=== PATIENT | male | born 1975 | race African-American/Black ===

== ENCOUNTER 2020-09-27 18:24 | Emergency (ER) | payer OTHER ==
[~2020-09-27] VITALS: Ht 177.8 cm; Wt 77.1 kg
--- NOTE | 2020-09-27 18:45 | NUR ---
BIB 86 for medical clearance, willing to go to psych facility voluntarily. Denies pain. In room air and denies SOB. Respiration regular and unlabored. Will continue to monitor the patient.
[2020-09-27 19:46] LABS: BASOPHILS # (AUTO) 0.1 K/uL (0.0-0.2); BASOPHILS % (AUTO) 0.4 % (0.0-2.0); EOSINOPHILS % (AUTO) 3.7 % (0.0-6.0); HEMATOCRIT 33 % (39-51); HEMOGLOBIN 11.3 g/dL (13.5-17.5); LYMPHOCYTES # (AUTO) 2.3 K/uL (0.8-4.8); LYMPHOCYTES % (AUTO) 19.1 % (20.0-44.0); MEAN CORPUSCULAR HGB CONC 34 g/dl (31.0-36.0); MEAN CORPUSCULAR VOLUME 91 fL (80-96); MONOCYTES # (AUTO) 1.1 K/uL (0.1-1.30); MONOCYTES % (AUTO) 8.7 % (2.0-12.0); NEUTROPHILS # (AUTO) 8.3 K/uL (1.8-8.9); NEUTROPHILS % (AUTO) 68.1 % (43.0-81.0); PLATELET COUNT (AUTO) 293 K/uL (150-450); RED BLOOD CELL COUNT(AUTO) 3.67 MIL/uL (4.5-6.0); WHITE BLOOD COUNT (AUTO) 12.2 K/uL (4.3-11.0)
[2020-09-27 20:00] LABS: ALANINE AMINOTRANSFERASE 18 U/L (12-78); ALBUMIN 3.1 g/dL (3.4-5.0); ALCOHOL, BLOOD < 3 mg/dL (0-0); ALKALINE PHOSPHATASE 68 U/L (46-116); ASPARTATE AMINOTRANSFERASE 15 U/L (15-37); BILIRUBIN,DIRECT 0.1 mg/dL (0.0-0.2); BILIRUBIN,TOTAL 0.2 mg/dL (0.2-1.0); CARBON DIOXIDE 27 mmol/L (21-32); CHLORIDE 101 mmol/L (98-107); GLUCOSE 102 mg/dL (74-106); POTASSIUM 3.7 mmol/L (3.5-5.1); SODIUM SERUM 137 mmol/L (136-145); TOTAL PROTEIN, SERUM 7.9 g/dL (6.4-8.2); UREA NITROGEN, BLOOD 10 mg/dL (7-18)
[2020-09-27 20:05] LABS: ACETAMINOPHEN < 10 ug/ml (10-30)
[2020-09-27 20:49] LABS: BILIRUBIN,URINE SMALL (NEGATIVE); COLOR,URINE YELLOW (YELLOW); LEUKOCYTE ESTERASE ,URINE Negative (NEGATIVE); NITRITE, URINE Negative (NEGATIVE); PROTEIN,URINE Trace mg/dl (NEGATIVE); UGLUCOSE Negative (NEGATIVE)
[2020-09-27 21:01] LABS: BACTERIA,URINE Rare /HPF (None Seen); SQUAMOUS EPITHELIAL CELL,UR 0-2 /HPF (None Seen); WBC,URINE 0-2 /HPF (0-3)
--- NOTE | 2020-09-27 23:08 | NUR ---
CLINICAL AND FACESHEET FAXED TO [facility] INTAKE FOR VOLUNTARY PSYCH ADMISSION.
--- NOTE | 2020-09-28 07:46 | NUR ---
THE PATIENT ALERT. DENIES PAIN. IN ROOM AIR AND DENIES SOB. RESPIRATION REGULAR AND UNLABORED. WILL CONTINUE TO MONITOR THE PATIENT.
--- NOTE | 2020-09-28 08:00 | NUR ---
THE PATIENT IS HAVING BREAKFAST
--- NOTE | 2020-09-28 09:19 | NUR ---
CALLED [facility] SHAAN
--- NOTE | 2020-09-28 10:36 | NUR ---
Med Aide Consultation: Med Aide consultation requested for possible voluntary admission to psychiatric hospital. Patient is a 44 year old male who was brought in by ambulance for psychiatric evaluation and hospitalization. Patient is a 44 year old male. This FINANCING ANALYST met with the patient bedside in the ED. Per ED physician's note, patient has a hx of Paranoid Schizophrenia, Bipolar Disorder, and Anxiety. Patient is awake, alert, able to communicate, however observed to be having visual hallucinations when this FINANCING ANALYST approached him, as evidenced by patient talking to someone that was not there. Patient admitted to hearing voices and seeing things, but could not elaborate further. Patient expressed wanting to go to a psychiatric hospital, stating "my head is divided and there are things in there". Patient presented with delusional thoughts, stating "I am with [place], [place], and [place]....I am with the government". Patient admitted to being depression, having suicidal thoughts, but no definite plan. Patient denied use of alcohol or drugs, however per toxicology report, patient did test positive for benzodiazepines. Patient reports being homeless, and this FINANCING ANALYST offered patient homeless resources. At this time, the plan is for this FINANCING ANALYST to refer patient to [facility] for voluntary psychiatric hospitalization.
--- NOTE | 2020-09-28 10:41 | NUR ---
This RN ED faxed clinicals and patient's facesheet to Anastacio at [facility], fax # [phone].
--- NOTE | 2020-09-28 11:39 | NUR ---
PT ACCEPTED TO [facility]
--- NOTE | 2020-09-28 12:17 | NUR ---
REPORT GIVEN TO SUPERVISIOR MEKA FROM [facility]. PER SUP SEND THE PATIENT AFTER 1600.
--- NOTE | 2020-09-28 12:24 | NUR ---
[facility] CALLED [facility] SET FOR 1600 SPOKE WITH
--- NOTE | 2020-09-28 16:42 | NUR ---
THE PATIENT IS TRANSFERED TO [facility] IN [place] VIA ARRANGED TRANSPO.
[2020-09-28 16:43] VITALS: BP 131/84
== END 2020-09-28 16:44 ==
LOC: ER 20:38
DX: F25.9 Schizoaffective disorder, unspecified (principal); D64.9 Anemia, unspecified; R45.851 Suicidal ideations; Z20.822 Contact with and (suspected) exposure to COVID-19; F41.9 Anxiety disorder, unspecified
CPT/HCPCS: 36415; 80048; 80076; 80143; 80307; 80320; 81001; 85025; 87426; 99285; C9803; G0480